=== PATIENT | female | born 1945 | race Caucasian/White ===

== ENCOUNTER → 2016-07-12 | Outpatient (CLI) | payer MEDICARE ==
[~2016-07-12] MED LIST: CALC-60 PO; CHOL20002 PO; HYDR25TA6 PO; MAGNESIUM PO; METH750T87 PO; OMEP40CA6 PO; ONE A DAY WOMENS PO; OXYC-229 PO; POTASSIUM PO; SIMV20TA3 PO; SOLI5TAB PO
== END | disposition home or self-care (01) ==
LOC: CFH 12:34
PROVIDERS: ATTEND Internal Medicine
DX: I65.23 Occlusion and stenosis of bilateral carotid arteries (principal)
CPT/HCPCS: 93880

== ENCOUNTER → 2016-09-06 | Outpatient (CLI) | payer MEDICARE | END | disposition home or self-care (01) | LOC: CFH 10:05 | PROVIDERS: ATTEND Specialist | DX: Z12.31 Encounter for screening mammogram for malignant neoplasm of breast (principal); C54.1 Malignant neoplasm of endometrium | CPT/HCPCS: 71020; G0202 ==

== ENCOUNTER → 2017-12-26 | Outpatient (CLI) | payer MEDICARE ==
[~2017-12-26] MED LIST changes: -CHOL20002 PO; +CHOL200052 PO; -OXYC-229 PO; +OXYC-307 PO; -SOLI5TAB PO; +SOLI5TAB2 PO
== END | disposition home or self-care (01) ==
LOC: CFH 12:16
PROVIDERS: ATTEND Internal Medicine
DX: Z12.31 Encounter for screening mammogram for malignant neoplasm of breast (principal); Z13.820 Encounter for screening for osteoporosis; M85.89 Other specified disorders of bone density and structure, multiple sites; E11.9 Type 2 diabetes mellitus without complications; Z78.0 Asymptomatic menopausal state
CPT/HCPCS: 77080; 77067

== ENCOUNTER → 2018-07-26 | Outpatient (CLI) | payer MEDICARE | END | disposition home or self-care (01) | LOC: CFH 09:14 | PROVIDERS: ATTEND Internal Medicine | DX: C54.9 Malignant neoplasm of corpus uteri, unspecified (principal) | CPT/HCPCS: 71046 ==

== ENCOUNTER 2019-12-31 09:18 | Outpatient (CLI) | payer MEDICARE ==
[~2019-12-31 09:18] MED LIST changes: +OMEP40CA42 PO; -OMEP40CA6 PO; +SIMV20TA19 PO; -SIMV20TA3 PO
== END 2019-12-31 23:59 | disposition home or self-care (01) ==
LOC: CFH 09:18
PROVIDERS: ATTEND Physician Assistant
DX: Z12.31 Encounter for screening mammogram for malignant neoplasm of breast (principal); C54.1 Malignant neoplasm of endometrium; C54.9 Malignant neoplasm of corpus uteri, unspecified; J98.4 Other disorders of lung; N95.2 Postmenopausal atrophic vaginitis; M47.814 Spondylosis without myelopathy or radiculopathy, thoracic region
CPT/HCPCS: 71046; 77063; 77067

== ENCOUNTER → 2020-05-01 | Outpatient (CLI) | payer MEDICARE ==
[~2020-05-01] MED LIST changes: -OXYC-307 PO; +OXYC-380 PO
== END | disposition home or self-care (01) ==
LOC: CFH 10:31
PROVIDERS: ATTEND Nurse Practitioner Family
DX: M85.80 Other specified disorders of bone density and structure, unspecified site (principal); N95.9 Unspecified menopausal and perimenopausal disorder
CPT/HCPCS: 77080

== ENCOUNTER → 2020-08-04 | Outpatient (CLI) | payer MEDICARE ==
[~2020-08-04] MED LIST changes: +ASPI81TA45 PO; +ATOR20TA37 PO; +CA C1TAB42 PO; +CHOL10003 PO; +FISH1CAP PO; +IBUP-1222 PO; +LISI40TA9 PO; +METF10007 PO; +MULT-658 PO; +OXYB15TA18 PO; +UBID100C41 PO; +VITA1TAB19 PO
[2020-08-04 10:04] LABS: ANION GAP 5 mmol/L (5-15); CALCIUM 9.2 mg/dL (8.5-10.1); CHLORIDE 109 mmol/L (98-107); CREATININE 0.96 mg/dL (0.55-1.02)
[2020-08-04 10:08] LABS: ALANINE AMINOTRANSFERASE 29 U/L (12-78); ALKALINE PHOSPHATASE 65 U/L (45-117); BILIRUBIN,TOTAL 0.4 mg/dL (0.2-1.0); TOTAL PROTEIN 7.1 g/dL (6.4-8.2)
== END | disposition home or self-care (01) ==
LOC: STAR 09:00
PROVIDERS: ATTEND Surgery
DX: Z01.812 Encounter for preprocedural laboratory examination (principal); Z20.822 Contact with and (suspected) exposure to COVID-19
CPT/HCPCS: 36415; 80053; 93005; U0003

== ENCOUNTER 2020-08-08 06:38 | Day surgery (SDC) | payer MEDICARE ==
[~2020-08-08] VITALS: Ht 152.4 cm; Wt 73.0 kg
[2020-08-08 06:53] VITALS: BP 157/84
[2020-08-08] MEDS ORDERED: CHLORHEXIDINE 15 ML UDC PO ONE (07:00)
[2020-08-08] MEDS ORDERED: LACTATED RINGERS 1,000 ML IV SCH (07:00)
[2020-08-08] MEDS ORDERED: EPINEPHRINE 1 MG/ML, 1ML ONE (07:08)
[2020-08-08] MEDS ORDERED: BUPIVACAINE/PF 0.5% ONE (07:08)
[2020-08-08] MEDS ORDERED: MIDAZOLAM 1 MG/ML, 2ML ONE (07:20)
[2020-08-08] MEDS ORDERED: FENTANYL PF 250 MCG/5ML ONE (07:20)
[2020-08-08] MEDS ORDERED: CEFAZOLIN 1,000 MG ONE ×2 (07:40)
[2020-08-08] MEDS ORDERED: DEXAMETHASONE 4 MG/ML, 1ML ONE (07:43)
[2020-08-08] MEDS ORDERED: ONDANSETRON 2MG/ML, 2ML ONE (07:43)
[2020-08-08] MEDS ORDERED: hydrALAzine 20 MG/ML, 1ML IV PRN (08:00)
[2020-08-08] MEDS ORDERED: LABETALOL 5MG/ML, 20ML IV PRN (08:00)
[2020-08-08] MEDS ORDERED: ONDANSETRON 2MG/ML, 2ML IVPush PRN (08:00)
[2020-08-08] MEDS ORDERED: MEPERIDINE/PF 25MG/0.5ML IVPush PRN (08:00)
[2020-08-08] MEDS ORDERED: PROMETHAZINE 25 MG/ML, 1ML IVPush PRN (08:00)
[2020-08-08] MEDS ORDERED: FENTANYL PF 100 MCG/2ML IV PRN (08:00)
[2020-08-08] MEDS ORDERED: morphine SULFATE 10 MG/ML, 1ML IVPush PRN (08:00)
[2020-08-08] MEDS ORDERED: HYDROmorphone 1 MG/ML, 1ML INJ IVPush PRN (08:00)
[2020-08-08] MEDS ORDERED: EPHEDRINE 50 MG/ML, 1ML ONE (08:17)
[2020-08-08] MEDS ORDERED: ROCURONIUM 10MG/ML,5ML ONE (09:03)
[2020-08-08] MEDS ORDERED: SUCCINYLCHOLINE 20 MG/ML, 10ML ONE (09:03)
[2020-08-08] MEDS ORDERED: PROPOFOL 10 MG/ML, 20ML ONE (09:03)
== END 2020-08-08 10:49 | disposition home or self-care (01) ==
LOC: OUT 06:38
PROVIDERS: ATTEND Surgery
DX: R15.9 Full incontinence of feces (principal); I10 Essential (primary) hypertension; E11.9 Type 2 diabetes mellitus without complications; Z79.84 Long term (current) use of oral hypoglycemic drugs; Z79.899 Other long term (current) drug therapy
CPT/HCPCS: 64561; 72220; J0171; J0330; J0690; J1100; J2250; J2405; J2704; J3010; J7120; 76000

== ENCOUNTER 2020-08-25 05:53 | Day surgery (SDC) | payer MEDICARE ==
[~2020-08-25] VITALS: Ht 154.9 cm; Wt 71.5 kg
[~2020-08-25 05:53] MED LIST changes: +FENTANYL PF 250 MCG/5ML ONE
[2020-08-25] MEDS ORDERED: BUPIVACAINE/PF 0.5% ONE (06:40)
[2020-08-25] MEDS ORDERED: EPINEPHRINE 1 MG/ML, 1ML ONE (06:40)
[2020-08-25] MEDS ORDERED: CHLORHEXIDINE 15 ML UDC PO ONE (07:00)
[2020-08-25] MEDS ORDERED: LACTATED RINGERS 1,000 ML IV SCH (07:00)
[2020-08-25] MEDS ORDERED: MIDAZOLAM 1 MG/ML, 2ML ONE (07:15)
[2020-08-25] MEDS ORDERED: FENTANYL PF 100 MCG/2ML ONE (07:15)
[2020-08-25] MEDS ORDERED: PROPOFOL 10 MG/ML, 20ML ONE (07:16)
[2020-08-25] MEDS ORDERED: SUCCINYLCHOLINE 20 MG/ML, 10ML ONE (07:17)
[2020-08-25 07:21] VITALS: BP 164/77
[2020-08-25] MEDS ORDERED: FENTANYL PF 100 MCG/2ML IV PRN (07:30)
[2020-08-25] MEDS ORDERED: ACETAMINOPHEN 325 MG TABLET PO PRN ×2 (07:30→08:30)
[2020-08-25] MEDS ORDERED: MEPERIDINE/PF 25MG/0.5ML IVPush PRN (07:30)
[2020-08-25] MEDS ORDERED: HYDROmorphone 1 MG/ML, 1ML INJ IVPush PRN (07:30)
[2020-08-25] MEDS ORDERED: LABETALOL 5MG/ML, 20ML IV PRN (07:30)
[2020-08-25] MEDS ORDERED: ONDANSETRON 2MG/ML, 2ML IVPush PRN (07:30)
[2020-08-25] MEDS ORDERED: OXYcodone 5 MG/5 ML ORAL.SOL UDC PO PRN (07:30)
[2020-08-25] MEDS ORDERED: hydrALAzine 20 MG/ML, 1ML IV PRN (07:30)
[2020-08-25] MEDS ORDERED: KETOROLAC 30 MG/1 ML IV PRN (08:30)
[2020-08-25] MEDS ORDERED: KETOROLAC 30 MG/1 ML ONE (08:39)
[2020-08-25] MEDS ORDERED: CEFAZOLIN 1,000 MG ONE (16:54)
[2020-08-25] MEDS ORDERED: ONDANSETRON 2MG/ML, 2ML ONE (16:54)
== END 2020-08-25 10:15 | disposition home or self-care (01) ==
LOC: OUT 05:53
PROVIDERS: ATTEND Surgery
DX: R15.9 Full incontinence of feces (principal); R32 Unspecified urinary incontinence; I10 Essential (primary) hypertension; E78.5 Hyperlipidemia, unspecified; K21.9 Gastro-esophageal reflux disease without esophagitis; Z20.822 Contact with and (suspected) exposure to COVID-19; Z79.82 Long term (current) use of aspirin; Z79.84 Long term (current) use of oral hypoglycemic drugs; Z79.899 Other long term (current) drug therapy; Z87.891 Personal history of nicotine dependence; Z88.8 Allergy status to other drugs, medicaments and biological substances; Z98.890 Other specified postprocedural states; Z83.3 Family history of diabetes mellitus; Z82.3 Family history of stroke
CPT/HCPCS: 64581; 64590; 82962; C1767; C1883; J0171; J0330; J0690; J1885; J2250; J2405; J2704; J3010; J7120; U0003; U0005

== ENCOUNTER → 2020-12-29 | Outpatient (CLI) | payer MEDICARE ==
[~2020-12-29] MED LIST changes: -FENTANYL PF 250 MCG/5ML ONE; -OMEP40CA42 PO; +OMEP40CA8 PO; -OXYC-380 PO; +OXYC-501 PO
== END | disposition home or self-care (01) ==
LOC: RAD 12:47
PROVIDERS: ATTEND Nurse Practitioner
DX: R10.13 Epigastric pain (principal)
CPT/HCPCS: 74250

== ENCOUNTER → 2020-12-31 | Outpatient (CLI) | payer MEDICARE | END | disposition home or self-care (01) | LOC: CFH 12:26 | PROVIDERS: ATTEND Internal Medicine | DX: Z12.31 Encounter for screening mammogram for malignant neoplasm of breast (principal) ==